=== PATIENT | female | born 1995 | race Caucasian/White ===

== ENCOUNTER → 2017-11-05 | Outpatient (REF) | payer OTHER | LOC: M LAB REF 13:17 | DX: Z12.4 Encounter for screening for malignant neoplasm of cervix (principal) ==

== ENCOUNTER → 2018-11-15 | Outpatient (REF) | payer OTHER | LOC: M LAB REF 15:22 | PROVIDERS: ATTEND Advanced Practice Midwife | DX: Z12.4 Encounter for screening for malignant neoplasm of cervix (principal) ==

== ENCOUNTER → 2018-11-15 | Outpatient (CLI) | payer OTHER | LOC: M SMT 08:18 | PROVIDERS: ATTEND Advanced Practice Midwife | DX: Z15.09 Genetic susceptibility to other malignant neoplasm (principal) | CPT/HCPCS: 36415; G0123 ==

== ENCOUNTER → 2019-09-14 | Outpatient (REF) | payer OTHER | LOC: M LAB REF 16:50 | PROVIDERS: ATTEND Physician Assistant | DX: N39.0 Urinary tract infection, site not specified (principal) ==

== ENCOUNTER → 2020-09-13 | Outpatient (REF) | payer OTHER ==
[2020-09-13 17:53] LABS: HEMATOCRIT 41.3 % (36.0-47.0); HEMOGLOBIN 13.9 g/dl (12.0-15.5); MEAN CORPUSCULAR HEMOGLOBIN 30.4 pg (27.0-33.0); MEAN CORPUSCULAR HGB CONC 33.7 g/dl (32.0-36.5); MEAN CORPUSCULAR VOLUME 90.4 fl (80.0-96.0); PLATELET COUNT, AUTOMATED 257 10^3/uL (150-450); RED BLOOD COUNT 4.57 10^6/uL (4.00-5.40)
[2020-09-13 19:05] LABS: HIV 1&2 SCREEN CENTAUR NEGATIVE (NEGATIVE)
== END ==
LOC: M PLALAB 14:59
PROVIDERS: ATTEND Obstetrics & Gynecology
DX: Z36.89 Encounter for other specified antenatal screening (principal); Z3A.01 Less than 8 weeks gestation of pregnancy

== ENCOUNTER → 2020-10-08 | Outpatient (CLI) | payer OTHER | LOC: M PLALAB 11:14 | PROVIDERS: ATTEND Advanced Practice Midwife | DX: Z34.81 Encounter for supervision of other normal pregnancy, first trimester (principal); Z36.89 Encounter for other specified antenatal screening ==

== ENCOUNTER → 2020-10-08 | Outpatient (REF) | payer OTHER ==
[2020-10-08 14:47] LABS: CHLAMYDIA DNA AMPLIFICATION NEGATIVE (NEGATIVE); GC DNA AMPLIFICATION NEGATIVE (NEGATIVE)
== END ==
LOC: M SFHCWAGY 12:58
PROVIDERS: ATTEND Advanced Practice Midwife
DX: Z34.02 Encounter for supervision of normal first pregnancy, second trimester (principal); Z36.89 Encounter for other specified antenatal screening
CPT/HCPCS: 36415; 87086; 87491; 87591; G0463

== ENCOUNTER → 2020-11-15 | Outpatient (CLI) | payer OTHER ==
--- NOTE | 2020-11-15 08:58 | REP ---
INDICATION: ANATOMY COMPARISON: None. TECHNIQUE: Transabdominal obstetrical ultrasound with color Doppler evaluation. FINDINGS: Examination demonstrates a single live intrauterine in cephalic presentation. motion is identified by technologist. Placenta is noted posterior and grade 1 without evidence for placenta previa or abruption. Amniotic fluid volume is normal. Cervix measures 3.2 cm in length and appears closed.. Selected gestational age: 18 weeks 4 days with DILLAN 04/14/2021. Gestational age by current measurements 18 weeks 1 day with DILLAN 04/17/2021. FHR equals 150 beats per minute. Estimated weight 222 grams (19thpercentile). Anatomical assessment demonstrates normal structures including cranium, choroid plexus, cavum, cerebellum/posterior fossa, facial features, lungs, diaphragm, stomach, cord insertion/three-vessel cord, kidneys/bladder, spine, and extremities. IMPRESSION: Single live intrauterine in cephalic presentation demonstrating appropriate interval growth/weight. Limited evaluation of the heart/ventricular outflow tracts. Remainder of the anatomical assessment is complete and normal. <Electronically signed by Mesfin Zarate > 11/15/20 [id number]
== END ==
LOC: M WHC 07:26
PROVIDERS: ATTEND Advanced Practice Midwife
DX: Z34.02 Encounter for supervision of normal first pregnancy, second trimester (principal); Z36.89 Encounter for other specified antenatal screening; Z3A.18 18 weeks gestation of pregnancy

== ENCOUNTER → 2020-12-30 | Outpatient (CLI) | payer OTHER ==
--- NOTE | 2020-12-30 14:55 | REP ---
INDICATION: F/U ANATOMY. COMPARISON: 11/15/2020. TECHNIQUE: Real-time sonographic evaluation of the gravid uterus performed. FINDINGS: Estimated gestational age is25 weeks 0 days, EDC 04/14/2021. Today's measurements indicate appropriate growth. Presentation: Cephalic Placenta posterior, grade 1, without evidence of placenta previa. heart rate is recorded at 144 beats per minute. Amniotic fluid is subjectively normal. Closed cervical length is measured at 3.1 cm. Biometry chart: BPD: 55 mm, 22 weeks 6 days, less than 5th percentile. HC: 220 mm, 24 weeks 0 days, 20th percentile AC: 198 mm, 24 weeks 3 days, 39th percentile Femur length: 45 mm, 24 weeks 6 days, 48th percentile HC to AC ratio: 1.11, normal range 1.01-1.20. Estimated weight: 703g, 21st percentile. anatomy: Cranium: Grossly normal Lateral Ventricles/Choroid Plexus: Grossly normal Posterior Fossa/Cerebellum: Grossly normal Nose/lips/profile: Grossly normal Four chamber heart: Grossly normal Right ventricular outflow tract: Grossly normal Left ventricular outflow tract: Grossly normal Left-sided stomach: Grossly normal Kidneys: Grossly normal Bladder: Grossly normal Cord Insertion: Grossly normal 3 vessel cord: Grossly normal Spine: Previously seen. IMPRESSION: Viable single intrauterine gestation as above. <Electronically signed by Roger Harris > 12/30/20 [id number]
== END ==
LOC: M WHC 12:31
PROVIDERS: ATTEND Advanced Practice Midwife
DX: Z34.02 Encounter for supervision of normal first pregnancy, second trimester (principal); Z36.2 Encounter for other antenatal screening follow-up; Z3A.22 22 weeks gestation of pregnancy

== ENCOUNTER → 2021-01-15 | Outpatient (CLI) | payer OTHER | LOC: M LAB 15:11 | PROVIDERS: ATTEND Advanced Practice Midwife | DX: Z34.02 Encounter for supervision of normal first pregnancy, second trimester (principal) ==

== ENCOUNTER → 2021-02-12 | Outpatient (CLI) | payer OTHER ==
[~2021-02-12] MED LIST: ONDA4TAB6 PO
[2021-02-12 17:09] LABS: HEMOGLOBIN 11.6 g/dl (12.0-15.5); MEAN CORPUSCULAR HEMOGLOBIN 30.5 pg (27.0-33.0); MEAN CORPUSCULAR HGB CONC 33.1 g/dl (32.0-36.5); MEAN CORPUSCULAR VOLUME 92.1 fl (80.0-96.0); PLATELET COUNT, AUTOMATED 188 10^3/uL (150-450); WHITE BLOOD COUNT 12.8 10^3/uL (4.0-10.0)
[2021-02-12 21:18] LABS: GC DNA AMPLIFICATION NEGATIVE (NEGATIVE)
== END ==
LOC: M PLALAB 15:12
PROVIDERS: ATTEND Advanced Practice Midwife
DX: Z36.89 Encounter for other specified antenatal screening (principal); Z3A.29 29 weeks gestation of pregnancy
CPT/HCPCS: 36415; 85027; 86850; 86900; 86901; 87491; 87591; 90471; 90715; G0463

== ENCOUNTER → 2021-03-20 | Outpatient (REF) | payer OTHER | LOC: M SFHCWAGY 12:59 | PROVIDERS: ATTEND Advanced Practice Midwife | DX: Z34.03 Encounter for supervision of normal first pregnancy, third trimester (principal); Z36.89 Encounter for other specified antenatal screening | CPT/HCPCS: 87081; G0463 ==

== ENCOUNTER 2021-03-24 08:00 | Emergency (ER) | payer OTHER ==
[~2021-03-24] VITALS: Ht 157.5 cm; Wt 67.9 kg
[2021-03-24] MEDS ORDERED: ONDA4TAB6 PO (08:13)
[2021-03-24 08:17] VITALS: O2SAT 95
[2021-03-24] MEDS ORDERED: NS 1,000 ML IV ONE (08:35)
[2021-03-24] MEDS ORDERED: ACETAMINOPHEN 325 MG TAB PO ONE (09:00)
[2021-03-24 09:16] LABS: RSV AMPLIFICATION NEGATIVE (NEGATIVE)
--- NOTE | 2021-03-24 09:38 | REP ---
INDICATION: covid exposure, cough, tachycardia COMPARISON: None. TECHNIQUE: Portable AP view of the chest FINDINGS: The mediastinum and cardiac silhouette are within normal limits for portable technique. The lung britt are clear without acute consolidation, effusion, or pneumothorax. Skeletal structures are intact. IMPRESSION: No acute cardiopulmonary process appreciated. <Electronically signed by Mesfin Zarate > 03/24/21 [id number]
[2021-03-24 10:16] LABS: BASO % 0.5 % (0.0-1.0); EOS % 0.4 % (0.0-3.0); HEMATOCRIT 33.2 % (36.0-47.0); HEMOGLOBIN 11.3 g/dl (12.0-15.5); LYMPH # 0.4 10^3/uL (1.5-5.0); LYMPH % 5.2 % (24.0-44.0); MEAN CORPUSCULAR HEMOGLOBIN 30.4 pg (27.0-33.0); MEAN CORPUSCULAR VOLUME 89.2 fl (80.0-96.0); MONO % 11.2 % (2.0-8.0); NEUTROPHILS # 6.9 10^3/uL (1.5-8.5); NEUTROPHILS % 80.5 % (36.0-66.0); PLATELET COUNT, AUTOMATED 153 10^3/uL (150-450); RED BLOOD COUNT 3.72 10^6/uL (4.00-5.40); WHITE BLOOD COUNT 8.5 10^3/uL (4.0-10.0)
[2021-03-24 10:28] LABS: INR 1.02; PROTHROMBIN TIME 13.8 SECONDS (12.7-14.5)
[2021-03-24 10:29] LABS: PARTIAL THROMBOPLASTIN TIME 36.3 SECONDS (25.9-37.0)
[2021-03-24 10:57] LABS: ALBUMIN 2.6 GM/DL (3.2-5.2); BLOOD UREA NITROGEN 9 MG/DL (7-18); CALCIUM LEVEL 7.9 MG/DL (8.5-10.1); CARBON DIOXIDE LEVEL 23 MEQ/L (21-32); CHLORIDE LEVEL 108 MEQ/L (98-107); GLUCOSE, FASTING 78 MG/DL (70-100); MAGNESIUM LEVEL 1.6 MG/DL (1.8-2.4); POTASSIUM SERUM 3.5 MEQ/L (3.5-5.1); SODIUM LEVEL 138 MEQ/L (136-145); TROPONIN I < 0.02 NG/ML (< 0.10)
[2021-03-24 10:59] LABS: ALT/SGPT 15 U/L (12-78); BILIRUBIN,TOTAL 0.4 MG/DL (0.2-1.0); C REACTIVE PROTEIN QUANTITATIV 1.58 MG/DL (0.00-0.30); CK-MB VALUE MASS < 1.0 NG/ML (<3.6); CPK CREATINE PHOSPHOKINASE 20 U/L (26-192); FERRITIN 16 NG/ML (8-252); GLOMERULAR FILTRATION RATE > 60.0 (>60); LDH LACTATE DEHYDROGENASE 150 U/L (84-246); TOTAL PROTEIN 6.3 GM/DL (6.4-8.2)
[2021-03-24] MEDS ORDERED: HOME MED LIST COMPLETE! XX SCH (11:00)
--- NOTE | 2021-03-24 12:15 | IPNPDOC ---
Date Seen The patient was seen on 03/24/21. Progress Note SUBJECTIVE: Patient is a 25-year-old female with past medical history asthma receiving weeks gestation who presented to [facility] emergency room with increased cough, fatigue, aches, chills, congestion, nonbloody diarrhea 1. The patient's has tested positive and she has been around him since his positive tests today. Today the patient tested positive in our emergency room. The patient was stable on room air and denied chest pain, shortness of breath, abdominal pain and loss of taste or smell. OB was contacted and recommended monoclonal antibody treatment along with low-dose aspirin for anticoagulation. The patient was in agreement and signed consent to receive monoclonal antibody infusion today. OBJECTIVE: VITAL SIGNS: Please see below PHYSICAL EXAMINATION: CONSTITUTIONAL: No acute distress, resting comfortably, AAO x 3 EYES: PERRLA, EOM intact HENT, MOUTH: Normocephalic, atraumatic, moist mucous membranes NECK: SUPPLE, no JVD, no lymphadenopathy, no carotid bruit CV: Regular rate and rhythm, S1S2 normal, no murmurs/rubs/gallops RESPIRATORY: Clear to auscultation bilaterally, no rales/rhonchi/wheezes GI: distended abd, BS positive in 4 quadrants, soft, nontender, no rebound or guarding, no organomegaly : Deferred MUSCULOSKELETAL: Normal ROM. No cyanosis, clubbing, swelling, joint deformity, extremity edema INTEGUMENTARY: Intact, no rashes, no lesions, no erythema NEUROLOGIC: Cranial Nerves II-XII are intact, no focal deficits PSYCHIATRIC: Mood and affect are normal CURRENT MEDICATIONS: Please see below LABORATORY DATA: Please see below IMAGING: None ASSESSMENT: 25 y/o F 37 weeks gestation, COVID 19 + to receive monoclonal antibody infusion. PLAN: 1. Covid 19 infection -High risk with current -Monoclonal antibody infusion to take place today monitored in our infusion unit -steam box hand aware and recommend aspirin for DVT prophylaxis 2. Asthma -stable DISPOSITION: To receive monoclonal antibody infusion in infusion unit. Plan is discharge after to f/u with PCP, tourist information assistant. VS, I&O, 24H, Fishbone Vital Signs/I&O Vital Signs Date Time Temp Pulse Resp B/P (MAP) Pulse Ox O2 Delivery O2 Flow Rate FiO2 03/24/21 10:45 119 16 98/54 (69) 96 Room Air 03/24/21 08:10 98.6 Laboratory Data 24H LABS Laboratory Tests 2 03/24/21 08:29: Coronavirus (COVID-19)(PCR) POSITIVEA, Influenza Type A (RT-PCR) NEGATIVE, Influenza Type B (RT-PCR) NEGATIVE, Respiratory Syncytial Virus (PCR) NEGATIVE 03/24/21 09:55: Immature Granulocyte % (Auto) 2.2, Neutrophils (%) (Auto) 80.5H, Lymphocytes (%) (Auto) 5.2L, Monocytes (%) (Auto) 11.2H, Eosinophils (%) (Auto) 0.4, Basophils (%) (Auto) 0.5, Neutrophils # (Auto) 6.9, Lymphocytes # (Auto) 0.4L, Monocytes # (Auto) 1.0H, Eosinophils # (Auto) 0.0, Basophils # (Auto) 0.0, Nucleated Red Blood Cells % (auto) 0.0, Prothrombin Time 13.8, Prothromb Time International Ratio 1.02, Activated Partial Thromboplast Time 36.3, Fibrinogen 546H, Anion Gap 7L, Glomerular Filtration Rate > 60.0, Calcium Level 7.9L, Magnesium Level 1.6L, Ferritin 16, Total Bilirubin 0.4, Aspartate Amino Transf (AST/SGOT) 21, Alanine Aminotransferase (ALT/SGPT) 15, Alkaline Phosphatase 133H, Lactate Dehydrogenase 150, Total Creatine Kinase 20L, Creatine Kinase MB < 1.0, Creatine Kinase MB Relative Index 5.00H, Troponin I < 0.02, C-Reactive Protein, Quantitative 1.58H, Total Protein 6.3L, Albumin 2.6L, Albumin/Globulin Ratio 0.7L CBC/BMP Laboratory Tests 03/24/21 09:55 Sommer Jacobson MD Mar 24, 2021 12:15
[2021-03-24 14:30] VITALS: BP 107/71
--- NOTE | 2021-03-24 19:19 | ECGEPIP ---
[facility] - ED Test Date: 2021-03-24 Pat Name: ALEX HALL Department: Room: - Gender: Female [employer] Operator: ADITYA : 1995 Requested By: BILLY Lance PA-C Order Number: [id number] Reading MD: Valentino Le Measurements Intervals [place] Rate: 119 P: 36 WV: 152 QRS: 44 QRSD: 72 T: 1 QT: 310 QTc: 436 Interpretive Statements Sinus tachycardia Nonspecific T wave abnormality No prior ECG for comparison Electronically Signed on 03-24-2021 19:18:52 EDT by Valentino Le
== END 2021-03-24 14:44 | disposition home or self-care (01) ==
LOC: M ED 08:00
DX: U07.1 COVID-19 (principal); O98.513 Other viral diseases complicating pregnancy, third trimester; Z3A.37 37 weeks gestation of pregnancy; Z20.822 Contact with and (suspected) exposure to COVID-19; R00.0 Tachycardia, unspecified; O99.013 Anemia complicating pregnancy, third trimester; Z88.0 Allergy status to penicillin

== ENCOUNTER 2021-03-24 18:11 | Outpatient (CLI) | payer OTHER ==
[~2021-03-24] VITALS: Ht 157.5 cm; Wt 68.0 kg
[2021-03-24 15:04] VITALS: BP 111/71
[2021-03-24 15:44] VITALS: BP 108/66
[2021-03-24 16:20] VITALS: BP 112/69
[2021-03-24 16:59] VITALS: BP 113/73
[2021-03-24 18:04] VITALS: BP 118/70
[~2021-03-24 18:11] MED LIST changes: +ALBUTEROL 90 MCG/ACT 8GM HFA INHALER INH PRN; +ALBUTEROL SULFATE 2.5 MG/0.5 ML INH NEB SOLN INH PRN; +BAMLANIVIMAB 700 MG, ETESEVIMAB 1,400 MG in NS 250 ML IV ONE; +EPINEPHrine INJ 1 MG/ML 1ML AMP IM PRN; +NS 1,000 ML IV SCH; +diphenhydrAMINE 50MG/ML VIAL (J1200) IV PRN; +methylPREDNISolone 125MG 2ML VIAL IV PRN
== END 2021-03-24 18:12 | disposition home or self-care (01) ==
LOC: M OPCLI4 18:11 → M MS4PR 18:12 → M OPCLI4 18:12
PROVIDERS: ATTEND Physician Assistant Medical
DX: U07.1 COVID-19 (principal); Z88.0 Allergy status to penicillin
CPT/HCPCS: 59025; 96360; 96361; M0245

== ENCOUNTER 2021-05-29 09:08 | Emergency (ER) | payer OTHER ==
[~2021-05-29] VITALS: Ht 157.5 cm; Wt 60.8 kg
[~2021-05-29 09:08] MED LIST changes: -ALBUTEROL 90 MCG/ACT 8GM HFA INHALER INH PRN; -ALBUTEROL SULFATE 2.5 MG/0.5 ML INH NEB SOLN INH PRN; -BAMLANIVIMAB 700 MG, ETESEVIMAB 1,400 MG in NS 250 ML IV ONE; -EPINEPHrine INJ 1 MG/ML 1ML AMP IM PRN; -NS 1,000 ML IV SCH; -diphenhydrAMINE 50MG/ML VIAL (J1200) IV PRN; -methylPREDNISolone 125MG 2ML VIAL IV PRN
[2021-05-29 09:09] VITALS: BP 118/68
[2021-05-29] MEDS ORDERED: LARI1TAB5 (09:16)
[2021-05-29] MEDS ORDERED: IBUPROFEN 800 MG TAB PO ONE (09:55)
[2021-05-29 10:27] LABS: APPEARANCE, URINE HAZY (CLEAR); BACTERIA, URINE AUTO NEGATIVE (NEGATIVE); BILIRUBIN, URINE AUTO NEGATIVE (NEGATIVE); BLOOD, URINE BLOOD NEGATIVE (NEGATIVE); COLOR, URINE AMBER (YELLOW); GLUCOSE, URINE (UA) AUTO NEGATIVE (NEGATIVE); KETONE, URINE AUTO TRACE mg/dL (NEGATIVE); LEUKOCYTE ESTERASE, URINE AUTO NEGATIVE (NEGATIVE); MUCUS, URINE LARGE (NEGATIVE); NITRITE, URINE AUTO NEGATIVE (NEGATIVE); PROTEIN, URINE AUTO 2+ mg/dL (NEGATIVE); RBC, URINE AUTO 2 /HPF (0-3); SPECIFIC GRAVITY URINE AUTO 1.034 (1.002-1.035); SQUAMOUS EPITHELIAL CELL UR AU 4 /HPF (0-6); WBC, URINE AUTO 2 /HPF (0-3)
--- NOTE | 2021-05-29 10:31 | REP ---
INDICATION: fall back pain. COMPARISON: None. TECHNIQUE: Five views FINDINGS: Five views of the lumbosacral spine show no acute fracture, dislocation or subluxation. The intervertebral disc spaces are symmetric and well maintained. There is no spondylolysis or spondylolisthesis. The pedicles are intact bilaterally and there is no destructive osseous lesion. IMPRESSION: Unremarkable lumbosacral spine series. <Electronically signed by Edi Yao > 05/29/21 [id number]
--- NOTE | 2021-05-29 10:32 | REP ---
INDICATION: fall back pain. COMPARISON: None TECHNIQUE: Two views FINDINGS: The hip joint space is symmetric and well maintained. There is no fracture, dislocation, or subluxation. There is no buttressing or marginal osteophytosis. The femoral head is spherical in shape. IMPRESSION: Within normal limits. <Electronically signed by Edi Yao > 05/29/21 [id number]
[2021-05-29] MEDS ORDERED: CYCL5TAB PO (10:41)
[2021-05-29] MEDS ORDERED: IBUP1TAB7 PO (10:41)
== END 2021-05-29 10:57 | disposition home or self-care (01) ==
LOC: M ED 09:08
DX: M54.50 Low back pain, unspecified (principal); R80.9 Proteinuria, unspecified; W01.10XA Fall on same level from slipping, tripping and stumbling with subsequent striking against unspecified object, initial encounter; Y92.9 Unspecified place or not applicable; Y93.9 Activity, unspecified; Y99.9 Unspecified external cause status; Z88.0 Allergy status to penicillin